=== PATIENT | male | born 1970 | race Caucasian/White ===

== ENCOUNTER 2016-12-09 18:49 | Inpatient (IN) | payer OTHER ==
[~2016-12-09] VITALS: Ht 182.9 cm; Wt 90.7 kg
--- NOTE | 2016-12-09 19:05 | NUR ---
PT BIB AMBULANCE FOR C/O ALOC. PER MEDIC BY-STANDER CALLED 911 AFTER SEEING PT LAYING ON SIDE OF ROAD. UPON MEDIC ARRIVAL PT LAYING ON GROUND AND REPEATING EPILEPSY. PT STATES HE TAKES DILANTIN BUT UNABLE TO ANSWER OTHER QUESTIONS APPROPRIATLY. PT LETHARGIC BUT ABLE TO FOLLOW COMANDS. PT PLACED ON FULL MONITORS WITH SEIZURE PRECAUTIONS IN PLACE.
--- NOTE | 2016-12-09 19:08 | NUR ---
PT ABLE TO STATE NAME OF HOSPITAL AND YES OR NO QUESTIONS. WHEN PT IS ASKED IF HE HAD A SEIZURE TODAY, PT ANSWERED "YES, MA'AM". PT INSTRUCTED TO LAY BACK IN GURNEY, PT FOLLOWS DIRECTIONS AND LAYS BACK, THEN REPEATEDLY STATES "EPILEPSY".
--- NOTE | 2016-12-09 19:10 | NUR ---
PT MOVED TO BED 9 FOR FURTHER OBSERVATION
--- NOTE | 2016-12-09 19:14 | NUR ---
PT RESTLESS IN BED. KEEPS ON REPEATING "EPILEPSY". DOES NOT ANSWER OTHER QUESTIONS.
[2016-12-09 20:23] LABS: BASOPHIL % 0.1 % (0-2); PLATELET COUNT 248 x10^3mcL (130-400)
[2016-12-09 20:29] LABS: RED CELL DISTRIBUTION WIDTH 14.9 % (11.5-14.5)
[2016-12-09 21:08] LABS: CALCIUM 9.2 mg/dL (8.5-10.1); CARBON DIOXIDE 20.3 mmol/L (21-32); CHLORIDE SERUM 110 mmol/L (98-107); GFR1 > 60 mL/min; GLUCOSE SERUM 113 mg/dL (74-106); POTASSIUM SERUM 3.4 mmol/L (3.5-5.1); SODIUM SERUM 145 mmol/L (136-145)
[2016-12-09 21:20] LABS: ALBUMIN 4.8 g/dL (3.4-5.0); ALKALINE PHOSPHATASE 78 U/L (46-116); ALT/SGPT 33 U/L (16-63); AST/SGOT 39 U/L (15-37); BILIRUBIN TOTAL 0.41 mg/dL (0.20-1.00); HDL CHOLESTEROL 59 mg/dL (40-60); LIPASE 150 IU/L (73-393); MAGNESIUM 2.3 mg/dL (1.8-2.4); T4(THYROXINE) 7.4 ug/dL (4.7-13.3); TOTAL PROTEIN, SERUM 8.2 g/dL (6.4-8.2)
--- NOTE | 2016-12-09 21:30 | NUR ---
PT BEING COMBATIVE AT THIS TIME, UNABLE TO TAKE TO CT, DR. MORROW IS AWARE.
[2016-12-09 21:35] LABS: AMYLASE 24 U/L (25-115); CHOLESTEROL 206 mg/dL (<200)
--- NOTE | 2016-12-09 22:57 | NUR ---
PT BROUGHT TO CT WITH MICHAELA VIA [facility] AT THIS TIME.
[2016-12-09 23:52] LABS: UA SPECIFIC GRAVITY 1.025 (1.005-1.035)
[2016-12-09 23:53] LABS: microscopic required? YES; urine erythrocyte 1+ (NEGATIVE)
[2016-12-10 00:05] LABS: AMPHETAMINE QUAL UR NONE DETECTED (NEG <=1000)
[2016-12-10] MEDS ORDERED: DILANTIN100 MG (00:22)
--- NOTE | 2016-12-10 00:46 | NUR ---
REPORT GIVEN TO YAQUELIN JEREZ TO ASSUME CARE OF PT.
--- NOTE | 2016-12-10 01:12 | NUR ---
REC'D PT FROM ER VIA [facility]. PT IS ALTERED, NOT ABLE TO FOLLOW COMMAND. PT ANSWERS WITH ONE OR TWO WORDS THAT DON'T MAKE SENSE. TELE #23 NSR. NO SIGNS OF PAIN OR DISCOMFORT NOTED. LUNG SOUNDS CLEAR. NO SOB NOTED. LOU CATHETER IN PLACE DRAINING YELLOW URINE. IV NOTED TO LAC. INTACT AND PATENT. ORIENTED PT TO CALL LIGHT. BED IN LOWEST POSITION. WILL ENDORSE TO PRIMARY RN.
[2016-12-10 01:27] VITALS: BP 168/78
--- NOTE | 2016-12-10 03:32 | NUR ---
REPORT TO DR. MIRANDA, REGARDING THE POTASSIUM 3.4, DR. KAUR AWARE, WILL CONTINUE TO MONITOR.
--- NOTE | 2016-12-10 05:05 | NUR ---
PT IS LETHARGIC, AWAKE BY TOUCH, BUT TALKING NONSENCE, AND FALL BACK TO SLEEP RIGHT AWAY, NO S/S OF SEIZURE AT THIS SHIFT SINCE PT UP TO FLOOR, CONTINUE TO SEIZUR PRECAUSION, NO S/S OF RESPIRATORY DISTRESS, NO S/S OF PAIN OR DISCOMFORT, IV AT LEFT AC, NO LEAKING, NO INFILTRATION. ALL ADLS ASSIST,A LL NEED MET, CALL LIGHT IN REACH, WILL CONTINUE TO MONTIOR.
--- NOTE | 2016-12-10 05:23 | NUR ---
REPORT TO DR. MIRANDA, REGARDING THE B/P 166/104, DR. KAUR AWARE, WILL CONTINUE TO MONITOR THE PT.
[2016-12-10 05:39] VITALS: BP 166/104
--- NOTE | 2016-12-10 07:10 | NUR ---
PT IN LOW FOWLERS. ALERT ORIENTED x4 DENIES PAIN AT MOMENT. PT IS ABLE TO VOICE NEEDS. IV INFUSING K-RIDER 30ML/HR BED IN LOWEST POSITION, CALL LIGHT WITHIN REACH.
[2016-12-10 09:48] VITALS: BP 161/107
--- NOTE | 2016-12-10 11:25 | NUR ---
PT VOICES WISHES TO LEAVE AMA. DR. QUINTANILLA EXPLAINED RISKS OF LEAVING AMA. PT VERBALIZED UNDERSTANDING OF DECISION. IV DC'D CATHETER INTACT, LOU CATHETER REMOVED PT TOLERATED PROCEDURES WELL. TELE BOX REMOVED. PT ESCORTED OUT OF UNIT SAFELY.
== END 2016-12-10 11:35 | disposition left against medical advice (07) | DRG 463 ==
LOC: ED 18:49 → DU 23:39
PROVIDERS: Emergency Medicine; ADMIT Family Medicine
DX: N39.0 Urinary tract infection, site not specified (principal); N17.0 Acute kidney failure with tubular necrosis; G93.41 Metabolic encephalopathy; E72.20 Disorder of urea cycle metabolism, unspecified; R31.9 Hematuria, unspecified; M62.82 Rhabdomyolysis; E86.0 Dehydration; E87.6 Hypokalemia; E78.5 Hyperlipidemia, unspecified
CPT/HCPCS: 82962; 83880; G0480; J1165; J1630; J1956; J2060; J3411; J3475; J3480; J3490; J7030; Q0092

== ENCOUNTER 2016-12-10 18:26 | Emergency (ER) | payer OTHER ==
[~2016-12-10] VITALS: Ht 185.4 cm; Wt 110.0 kg
[~2016-12-10 18:26] MED LIST: DILANTIN100 MG
[2016-12-10 19:26] LABS: BASOPHIL % 0.2 % (0-2); PLATELET COUNT 221 x10^3mcL (130-400); RED CELL DISTRIBUTION WIDTH 14.5 % (11.5-14.5)
[2016-12-10 19:31] LABS: CALCIUM 8.5 mg/dL (8.5-10.1); CARBON DIOXIDE 21.3 mmol/L (21-32); CHLORIDE SERUM 108 mmol/L (98-107); CREATININE SERUM 0.9 mg/dL (0.7-1.3); GFR1 > 60 mL/min; GLUCOSE SERUM 94 mg/dL (74-106); SODIUM SERUM 141 mmol/L (136-145)
[2016-12-10 20:42] VITALS: BP 143/73
== END 2016-12-10 20:42 | disposition home or self-care (01) ==
LOC: ED 18:26
PROVIDERS: Emergency Medicine
DX: R41.82 Altered mental status, unspecified (principal); I10 Essential (primary) hypertension; G62.9 Polyneuropathy, unspecified; G89.29 Other chronic pain; G31.01 Pick's disease; F02.80 Dementia in other diseases classified elsewhere, unspecified severity, without behavioral disturbance, psychotic disturbance, mood disturbance, and anxiety; Z79.899 Other long term (current) drug therapy
CPT/HCPCS: J2060; J7030

== ENCOUNTER 2016-12-11 01:36 | Emergency (ER) | payer OTHER ==
[2016-12-11 02:50] LABS: BASOPHIL % 0.4 % (0-2); PLATELET COUNT 236 x10^3mcL (130-400)
[2016-12-11 02:56] LABS: RED CELL DISTRIBUTION WIDTH 14.9 % (11.5-14.5)
[2016-12-11 03:04] LABS: CALCIUM 8.4 mg/dL (8.5-10.1); CARBON DIOXIDE 22.9 mmol/L (21-32); CHLORIDE SERUM 110 mmol/L (98-107); CREATININE SERUM 0.9 mg/dL (0.7-1.3); GFR1 > 60 mL/min; GLUCOSE SERUM 112 mg/dL (74-106); POTASSIUM SERUM 3.4 mmol/L (3.5-5.1); SODIUM SERUM 141 mmol/L (136-145)
[2016-12-11 03:09] LABS: ALKALINE PHOSPHATASE 71 U/L (46-116); ALT/SGPT 34 U/L (16-63); AST/SGOT 47 U/L (15-37); BILIRUBIN TOTAL 0.4 mg/dL (0.20-1.00); CHOLESTEROL 167 mg/dL (<200); TOTAL PROTEIN, SERUM 7.1 g/dL (6.4-8.2)
[2016-12-11 11:21] VITALS: BP 165/96
== END 2016-12-11 11:21 | disposition home or self-care (01) ==
LOC: ED 01:36
PROVIDERS: Specialist
DX: R45.1 Restlessness and agitation (principal); M62.82 Rhabdomyolysis; E86.0 Dehydration; I10 Essential (primary) hypertension; Z79.899 Other long term (current) drug therapy
CPT/HCPCS: 83880; G0480; J0515; J1630; J2060; J2405; J7030; Q0092

== ENCOUNTER 2016-12-11 16:35 | Emergency (ER) | payer OTHER ==
[~2016-12-11] VITALS: Ht 185.4 cm; Wt 99.8 kg
[2016-12-11 19:32] VITALS: BP 131/96
== END 2016-12-11 19:32 | disposition home or self-care (01) ==
LOC: ED 16:35
DX: R40.4 Transient alteration of awareness (principal); I10 Essential (primary) hypertension; G40.909 Epilepsy, unspecified, not intractable, without status epilepticus; Z79.899 Other long term (current) drug therapy
CPT/HCPCS: 36415